=== PATIENT | male | born 1965 | race Caucasian/White ===

== ENCOUNTER 2022-03-15 14:23 | Emergency (ER) | payer MEDICARE, OTHER ==
[~2022-03-15] VITALS: Ht 180.3 cm; Wt 159.0 kg
[2022-03-15 19:50] LABS: GLUCOMETER DEV NAME(LOC) ERT.5; GLUCOSE,POINT OF CARE 161 MG/DL (70-110)
[2022-03-15] MEDS ORDERED: LEVO75 PO (20:07)
[2022-03-15] MEDS ORDERED: DICY-1 PO (20:07)
[2022-03-15] MEDS ORDERED: METO25XL PO (20:07)
[2022-03-15] MEDS ORDERED: FURO40 PO (20:07)
[2022-03-15] MEDS ORDERED: POTA-206 PO (20:07)
[2022-03-15] MEDS ORDERED: FAMO20 PO (20:07)
[2022-03-15] MEDS ORDERED: AMLO-257 PO (20:07)
[2022-03-15] MEDS ORDERED: CLOP75TA60 PO (20:07)
[2022-03-15] MEDS ORDERED: TRAZ150T80 PO (20:07)
[2022-03-15] MEDS ORDERED: ESCI20TA87 PO (20:07)
[2022-03-15] MEDS ORDERED: QUET100T PO (20:07)
[2022-03-15] MEDS ORDERED: ARIP5TAB37 PO (20:07)
[2022-03-15] MEDS ORDERED: LISI-892 PO (20:07)
[2022-03-15] MEDS ORDERED: ATOR40TA28 PO (20:07)
[2022-03-15] MEDS ORDERED: CITALOPRAM HYDROBROMIDE 20 MG TABLET PO ONE (20:30)
[2022-03-15] MEDS ORDERED: FLUT1BLS IH (20:33)
[2022-03-15] MEDS ORDERED: SEMA1PEN3 SQ (20:33)
[2022-03-15] MEDS ORDERED: ESCITALOPRAM OXALATE 20 MG TABLET PO ONE (20:45)
[2022-03-15 20:54] LABS: COVID AG,FIA SOURCE NASAL SWAB
[2022-03-15 21:10] LABS: BASOPHILS % (AUTO) 0.9 % (0.0-2.0); EOSINOPHILS % (AUTO) 1.6 % (1.0-6.0); HEMATOCRIT 40.2 % (41-53); HEMOGLOBIN 12.5 g/dL (13.5-17.5); LYMPHOCYTES # (AUTO) 1.9 K/uL (1.0-4.8); LYMPHOCYTES % (AUTO) 21.6 % (22.0-44.0); MEAN CORPUSCULAR HEMOGLOBIN 22.9 pg (26.0-34.0); MEAN CORPUSCULAR HGB CONC 31.2 G/dL (31.0-37.0); MEAN CORPUSCULAR VOLUME 74 fL (80-100); MONOCYTES # (AUTO) 0.7 K/uL (0.1-1.0); MONOCYTES % (AUTO) 7.8 % (2.0-9.0); NEUTROPHILS # (AUTO) 6.1 K/uL (1.8-7.7); NEUTROPHILS % (AUTO) 68.1 % (40.0-70.0); PLATELET COUNT (AUTO) 151 K/uL (150-450); RED BLOOD CELL COUNT(AUTO) 5.46 MIL/uL (4.50-5.90); RED CELL DISTRIBUTION WIDTH 18.3 % (11.5-14.5)
[2022-03-15 21:20] LABS: ANION GAP 7 mmol/L (8-16); CALCIUM, TOTAL 9.4 mg/dL (8.8-10.5); CARBON DIOXIDE 34 mmol/L (22-29); CHLORIDE 100 mmol/L (98-107); CREATININE 1.23 mg/dL (0.60-1.30); GLOMERULAR FILTR. RATE CALC > 60 mL/min (>60); GLUCOSE,RANDOM 149 mg/dL (70-110); SODIUM SERUM 141 mmol/L (136-145); UREA NITROGEN, BLOOD 16 mg/dL (7-18)
[2022-03-15 21:25] LABS: ALANINE AMINOTRANSFERASE 29 U/L (12-78); ALBUMIN 3.1 g/dL (3.4-5.0); ALKALINE PHOSPHATASE 108 U/L (46-116); ASPARTATE AMINOTRANSFERASE 17 U/L (15-37); BILIRUBIN,TOTAL 0.3 mg/dL (0.1-1.0); TOTAL PROTEIN, SERUM 7.1 g/dL (6.4-8.2)
[2022-03-15] MEDS ORDERED: KETOROLAC TROMETHAMINE 30 MG/ML VIAL IM ONE (22:00)
[2022-03-16] MEDS ORDERED: QUEtiapine FUMARATE 100 MG TABLET PO ONE (00:30)
[2022-03-16] MEDS ORDERED: TraZODone HCL 50 MG TABLET PO ONE (00:30)
[2022-03-16 08:45] VITALS: BP 134/78
== END 2022-03-16 10:04 | disposition home or self-care (01) ==
LOC: EMS 14:25
DX: F32.A Depression, unspecified (principal); R45.851 Suicidal ideations; F41.9 Anxiety disorder, unspecified; J44.9 Chronic obstructive pulmonary disease, unspecified; E11.9 Type 2 diabetes mellitus without complications; G80.9 Cerebral palsy, unspecified; Z90.49 Acquired absence of other specified parts of digestive tract; Z88.0 Allergy status to penicillin; Z20.822 Contact with and (suspected) exposure to COVID-19
CPT/HCPCS: 99285; 87426; 80053; 82962 ×2; 85025; 36415; 96372; G0480; J1885; 99284

== ENCOUNTER 2023-04-07 07:21 | Day surgery (SDC) | payer OTHER, MEDICARE ==
[~2023-04-07] VITALS: Ht 180.3 cm; Wt 154.5 kg
[~2023-04-07 07:21] MED LIST: AMLO-257 PO; ARIP5TAB37 PO; ATOR40TA28 PO; CLOP75TA60 PO; DICY-1 PO; ESCI20TA87 PO; FAMO20 PO; FLUT1BLS IH; FURO40 PO; LEVO75 PO; LISI-892 PO; METO25XL PO; POTA-206 PO; QUET100T PO; RINGERS SOLUTION,LACTATED 0 ML IV ONE; RINGERS SOLUTION,LACTATED 1,000 ML IV ONE; SEMA1PEN3 SQ; TRAZ150T80 PO
[2023-04-07] MEDS ORDERED: KETAMINE HCL 50 MG/ML 10 ML VIAL IVP ONE (07:22)
[2023-04-07] MEDS ORDERED: CLINDAMYCIN 600 MG/D5% WATER 50 ML IV ONE (07:30)
[2023-04-07 08:15] LABS: BASOPHILS % (AUTO) 0.6 % (0.0-2.0); EOSINOPHILS % (AUTO) 2.2 % (1.0-6.0); HEMATOCRIT 44.7 % (41-53); HEMOGLOBIN 15.3 g/dL (13.5-17.5); LYMPHOCYTES # (AUTO) 2.1 K/uL (1.0-4.8); LYMPHOCYTES % (AUTO) 30.9 % (22.0-44.0); MEAN CORPUSCULAR HEMOGLOBIN 33.4 pg (26.0-34.0); MEAN CORPUSCULAR HGB CONC 34.1 G/dL (31.0-37.0); MEAN CORPUSCULAR VOLUME 98 fL (80-100); MONOCYTES # (AUTO) 0.5 K/uL (0.1-1.0); MONOCYTES % (AUTO) 8.2 % (2.0-9.0); NEUTROPHILS # (AUTO) 3.9 K/uL (1.8-7.7); NEUTROPHILS % (AUTO) 58.1 % (40.0-70.0); PLATELET COUNT (AUTO) 102 K/uL (150-450); RED BLOOD CELL COUNT(AUTO) 4.56 MIL/uL (4.50-5.90); RED CELL DISTRIBUTION WIDTH 14.2 % (11.5-14.5); WHITE BLOOD COUNT (AUTO) 6.7 K/uL (4.5-11.0)
[2023-04-07 08:29] LABS: PROTHROMBIN TIME 10.6 SEC (9.4-11.6)
[2023-04-07 08:31] LABS: ANION GAP 8 mmol/L (8-16); CALCIUM, TOTAL 9.4 mg/dL (8.8-10.5); CARBON DIOXIDE 28 mmol/L (22-29); CHLORIDE 102 mmol/L (98-107); CREATININE 0.86 mg/dL (0.60-1.30); GLOMERULAR FILTR. RATE CALC > 60 mL/min (>60); GLUCOSE,RANDOM 185 mg/dL (70-110); POTASSIUM 3.9 mmol/L (3.5-5.1); SODIUM SERUM 138 mmol/L (136-145); UREA NITROGEN, BLOOD 14 mg/dL (7-18)
[2023-04-07 08:34] LABS: ALANINE AMINOTRANSFERASE 43 U/L (12-78); ALBUMIN 3.3 g/dL (3.4-5.0); ALKALINE PHOSPHATASE 96 U/L (46-116); ASPARTATE AMINOTRANSFERASE 24 U/L (15-37); BILIRUBIN,TOTAL 0.6 mg/dL (0.1-1.0); TOTAL PROTEIN, SERUM 6.8 g/dL (6.4-8.2)
[2023-04-07 10:36] LABS: GLUCOMETER DEV NAME(LOC) SDS.; GLUCOSE,POINT OF CARE 205 MG/DL (70-110)
[2023-04-07] MEDS ORDERED: LIDOCAINE/PF 2% 5 ML VIAL IM ONE (12:00)
[2023-04-07] MEDS ORDERED: ROCURONIUM BROMIDE 10 MG/ML 5 ML VIAL IVP ONE (12:00)
[2023-04-07] MEDS ORDERED: DEXAMETHASONE SOD PHOS 4 MG/ML VIAL IVP ONE (12:00)
[2023-04-07] MEDS ORDERED: ONDANSETRON HCL 4 MG/2 ML VIAL IVP ONE (12:00)
[2023-04-07] MEDS ORDERED: SUGAMMADEX SODIUM 200 MG/2 ML VIAL IVP ONE (12:00)
== END 2023-04-07 14:20 | disposition home or self-care (01) ==
LOC: SURGERY 07:21
PROVIDERS: ATTEND Dentist General Practice
DX: K05.30 Chronic periodontitis, unspecified (principal); K02.9 Dental caries, unspecified; K03.6 Deposits [accretions] on teeth; K59.00 Constipation, unspecified; F41.9 Anxiety disorder, unspecified; E78.5 Hyperlipidemia, unspecified; E11.9 Type 2 diabetes mellitus without complications; G80.9 Cerebral palsy, unspecified; I11.0 Hypertensive heart disease with heart failure; F41.8 Other specified anxiety disorders; I50.9 Heart failure, unspecified; J44.9 Chronic obstructive pulmonary disease, unspecified; E66.01 Morbid (severe) obesity due to excess calories; Z79.01 Long term (current) use of anticoagulants; Z79.899 Other long term (current) drug therapy; Z88.0 Allergy status to penicillin; Z98.890 Other specified postprocedural states; E78.00 Pure hypercholesterolemia, unspecified
CPT/HCPCS: 41899; 71045; 80053; 82962; 85025; 85610; 85730; 36415; 93005; J3490 ×4; J1100; J2405; Q9967; J7120